=== PATIENT | male | born 1950 | race Caucasian/White ===

== ENCOUNTER → 2017-03-16 | Outpatient (CLI) | payer BC | LOC: RAH 07:38 | PROVIDERS: ATTEND Family Medicine | DX: N20.0 Calculus of kidney (principal); N28.1 Cyst of kidney, acquired | CPT/HCPCS: 76700 ==

== ENCOUNTER → 2017-03-22 | Outpatient (CLI) | payer BC ==
[2017-03-22 11:33] LABS: ALBUMIN 3.3 g/dL (3.5-5.0); BILIRUBIN,TOTAL 0.5 mg/dL (0.2-1.0); CREATININE 1.3 mg/dL (0.5-1.5); POTASSIUM 3.9 mmol/L (3.5-5.1); TOTAL PROTEIN, SERUM 6.7 g/dL (6.0-8.3)
[2017-03-23 08:20] LABS: HEPATITIS A ANTIBODY IGM Negative (Negative); HEPATITIS B CORE IGM Negative (Negative); HEPATITIS Bs ANTIGEN SCREEN P Negative (Negative)
== END | disposition home or self-care (01) ==
LOC: LAB 10:51
PROVIDERS: ATTEND Family Medicine
DX: I12.9 Hypertensive chronic kidney disease with stage 1 through stage 4 chronic kidney disease, or unspecified chronic kidney disease (principal); E11.69 Type 2 diabetes mellitus with other specified complication; N18.9 Chronic kidney disease, unspecified; E78.4 Other hyperlipidemia; R74.9 Abnormal serum enzyme level, unspecified
CPT/HCPCS: 36415; 80053; 80074

== ENCOUNTER → 2017-11-04 | Outpatient (CLI) | payer BC | END | disposition home or self-care (01) | LOC: RAH 08:26 | PROVIDERS: ATTEND Family Medicine | DX: I08.1 Rheumatic disorders of both mitral and tricuspid valves (principal); I12.9 Hypertensive chronic kidney disease with stage 1 through stage 4 chronic kidney disease, or unspecified chronic kidney disease; E11.22 Type 2 diabetes mellitus with diabetic chronic kidney disease; E11.52 Type 2 diabetes mellitus with diabetic peripheral angiopathy with gangrene; N18.5 Chronic kidney disease, stage 5 | CPT/HCPCS: 93306 ==

== ENCOUNTER → 2018-08-17 | Outpatient (CLI) | payer BC ==
[~2018-08-17] MED LIST: AMLO10TA7 PO; CARV25TA PO; HYAL1CAP PO; INSU100V3 SQ; KRIL500C PO; LOSA1TAB54 PO; METF-446 PO; NPH,100V SQ
--- NOTE | 2018-08-17 11:14 | NUR ---
FOLLOW UP MBSS COMPLETED. Pt WITH FUNCTIONAL SWALLOW AT THIS TIME. NO RISKS OF ASPIRATION. OK FOR P.O. BY MOUTH FOR ALL MEALS AND SNACKS. SKILLED SPEECH THERAPY IS NOT RECOMMENDED AT THIS TIME. Addendum: 08/17/18 at 1116 by ZEINA BURNS, SPT ST Amended: Links added.
== END | disposition home or self-care (01) ==
LOC: RAH 09:33
PROVIDERS: ATTEND Internal Medicine Gastroenterology
DX: R13.12 Dysphagia, oropharyngeal phase (principal); R63.3 Feeding difficulties; I10 Essential (primary) hypertension; E11.9 Type 2 diabetes mellitus without complications; Z86.73 Personal history of transient ischemic attack (TIA), and cerebral infarction without residual deficits
CPT/HCPCS: 74230; 92611

== ENCOUNTER → 2018-10-20 | Outpatient (CLI) | payer BC | END | disposition home or self-care (01) | LOC: SHCH 10:00 | PROVIDERS: ATTEND Internal Medicine Cardiovascular Disease | DX: I08.1 Rheumatic disorders of both mitral and tricuspid valves (principal); Z95.2 Presence of prosthetic heart valve | CPT/HCPCS: 93306 ==

== ENCOUNTER → 2019-04-04 | Outpatient (CLI) | payer BC | END | disposition home or self-care (01) | LOC: RAH 15:11 | PROVIDERS: ATTEND Family Medicine | DX: I65.23 Occlusion and stenosis of bilateral carotid arteries (principal) | CPT/HCPCS: 93880 ==

== ENCOUNTER 2020-03-17 15:57 | Inpatient (IN) | payer MEDICARE, BC ==
[~2020-03-17] VITALS: Ht 177.8 cm; Wt 79.9 kg
[2020-03-17] VITALS (19 sets, daily range): BP systolic 132–153; BP diastolic 63–83
[~2020-03-17 15:57] MED LIST changes: -AMLO10TA7 PO; +ASPI-1197 PO; +ATOR40TA69 PO; -CARV25TA PO; +CLOP75TA14 PO; +DULA0.75 SQ; +FLUO20CA30 PO; +FOLI1TAB61 PO; -HYAL1CAP PO; -INSU100V3 SQ; +INSU300I SQ; +INSU3INS3 SQ; -KRIL500C PO; -LOSA1TAB54 PO; -METF-446 PO; +METO25TA6 PO; +MIRA25TA PO; -NPH,100V SQ; +PANT40TA55 PO; +TELM1TAB31 PO
[2020-03-17 16:52] LABS: BASOPHILS % (AUTO) 1.3 % (0.0-5.0); EOSINOPHILS % (AUTO) 4.3 % (0.0-8.0); HEMATOCRIT 25.1 % (42-54); LYMPHOCYTES % (AUTO) 10.5 % (21.0-51.0); MEAN CORPUSCULAR HEMOGLOBIN 24.5 pg (27.0-33.0); MEAN CORPUSCULAR HGB CONC 29.9 g/dL (32.0-36.0); MONOCYTES % (AUTO) 6.8 % (3.0-13.0); NEUTROPHILS % (AUTO) 76.8 % (40.0-77.0); PLATELET COUNT (AUTO) 251 K/uL (130-400); RED BLOOD CELL COUNT(AUTO) 3.06 MIL/uL (4.50-6.20); RED CELL DISTRIBUTION WIDTH 16.4 % (11.0-15.5); WHITE BLOOD COUNT (AUTO) 12.6 K/uL (4.8-10.8)
[2020-03-17 17:00] LABS: CREATININE 1.6 mg/dL (0.5-1.5); POTASSIUM 4.1 mmol/L (3.5-5.1)
[2020-03-17] MEDS ORDERED: MORPHINE 4 MG SYG IV PRN (17:45)
[2020-03-17] MEDS ORDERED: LACTULOSE 20 GM/30 ML UDCUP PO PRN (17:45)
[2020-03-17] MEDS ORDERED: DiphenhydrAMINE HCL 50 MG/ML VIAL IV PRN (17:45)
[2020-03-17] MEDS ORDERED: GUAIFENESIN-DM 200/20 MG 10 ML PO PRN (17:45)
[2020-03-17] MEDS ORDERED: ACETAMINOPHEN 325 MG TAB PO PRN ×2 (17:45)
[2020-03-17] MEDS ORDERED: MAG/ALUM/SIMETH 30 ML UDCUP PO PRN (17:45)
[2020-03-17] MEDS ORDERED: ONDANSETRON 4MG INJ IV PRN (17:45)
[2020-03-17] MEDS ORDERED: VANCOMYCIN 1G/250ML KIT 250 ML IV SCH (17:45)
[2020-03-17] MEDS ORDERED: BUPIVACAINE/PF 0.5% 30ML VIAL ONE (17:52)
[2020-03-17] MEDS ORDERED: MIDAZOLAM HCL 1 MG/ML 2ML VIAL ONE (17:52)
[2020-03-17] MEDS ORDERED: LIDOCAINE HCL 1% 20 ML VIAL ONE (17:52)
[2020-03-17] MEDS ORDERED: LIDOCAINE PF 100MG/5ML (2%) SYRINGE 5ML ONE (17:52)
[2020-03-17] MEDS ORDERED: FENTANYL CITRATE PF 50 MCG/1 ML 2ML VIAL ONE (17:52)
[2020-03-17] MEDS ORDERED: PROPOFOL 10 MG/ML 20ML VIAL IV ONE (17:52)
[2020-03-17] MEDS ORDERED: ONDANSETRON 4MG INJ ONE (17:52)
[2020-03-17] MEDS ORDERED: MEPERIDINE-PF 25 MG/ML SYG ONE (17:53)
[2020-03-17] MEDS ORDERED: EPHEDRINE SULFATE 50 MG/ML AMPULE ONE (18:15)
[2020-03-17] MEDS ORDERED: VANCOMYCIN PROTOCOL PER PHARMACY IV SCH (18:45)
[2020-03-17] MEDS ORDERED: ZOSYN 3.375GM+NS 50ML 50 ML IV ONE (19:44)
[2020-03-17] MEDS: ZOSYN 3.375GM+NS 50ML 50 ML IV SCH (20:29)
[2020-03-17] MEDS ORDERED: DEXTROSE 50%-WATER 50 ML DISP.SYRIN IV PRN (21:30)
[2020-03-17] MEDS ORDERED: PHARMACY COMMUNICATION MISC SCH (21:30)
[2020-03-17] MEDS ORDERED: GLUCAGON 1MG KIT 1 MG ML IM PRN (21:30)
[2020-03-17] MEDS: 0.9%NACL 1000ML 1,000 ML IV SCH (22:29)
[2020-03-17 23:00] LABS: HEMATOCRIT 21.1 % (42-54)
[2020-03-18] VITALS (7 sets, daily range): BP systolic 126–160; BP diastolic 59–81
[2020-03-18] MEDS: ZOSYN 3.375GM+NS 50ML 50 ML IV SCH ×3 (05:25→21:12)
[2020-03-18] MEDS: INSULIN HUMULIN R 100 UNIT/ML 3ML SQ SCH ×4 (05:57→21:00)
[2020-03-18 06:07] LABS: HEMATOCRIT 26.3 % (42-54); MEAN CORPUSCULAR HEMOGLOBIN 25.6 pg (27.0-33.0); MEAN CORPUSCULAR HGB CONC 30.8 g/dL (32.0-36.0); PLATELET COUNT (AUTO) 219 K/uL (130-400); RED BLOOD CELL COUNT(AUTO) 3.17 MIL/uL (4.50-6.20); RED CELL DISTRIBUTION WIDTH 16.1 % (11.0-15.5); WHITE BLOOD COUNT (AUTO) 10.7 K/uL (4.8-10.8)
[2020-03-18] MEDS ORDERED: COMPOUND IV REFRIGERATED 1 EACH IVSOLN MISC PRN (06:15)
[2020-03-18 06:32] LABS: INR 1.19 (0.85-1.15); PROTHROMBIN TIME 12.8 SEC (9.6-11.6)
[2020-03-18 06:33] LABS: PARTIAL THROMBOPLASTIN TIME 29.7 SEC (26.3-35.5)
[2020-03-18 07:04] LABS: LYMPHOCYTES % (MANUAL) 14 % (22-44); MAN.DIFF COMMENT-IMPRESSION MANUAL DIFFERENTIAL; MONOCYTES % (MANUAL) 3 % (2-9); SEGMENTED NEUTROPHILS % 83 % (40-70)
[2020-03-18 07:05] LABS: PLATELET MORPHOLOGY COMMENT ADEQUATE
[2020-03-18 07:25] LABS: CREATININE 1.5 mg/dL (0.5-1.5); MAGNESIUM 1.5 mg/dL (1.80-2.40); POTASSIUM 3.9 mmol/L (3.5-5.1)
[2020-03-18] MEDS: LOSARTAN/HYDROCHLOROTHIAZIDE 50-12.5MG TABLET PO SCH (10:45)
[2020-03-18] MEDS: METOPROLOL TARTRATE 25 MG TAB PO SCH ×2 (10:46→21:12)
[2020-03-18] MEDS: Vitamin B Complex/Vit C/Folic Acid PO SCH (10:46)
[2020-03-18] MEDS: FLUOXETINE HCL 20 MG CAPSULE PO SCH (10:46)
[2020-03-18] MEDS: PANTOPRAZOLE 40 MG TAB DR PO SCH (10:46)
[2020-03-18] MEDS: VANCOMYCIN 1G 1.25 GM in 0.9% NACL 250ML 250 ML IV SCH (10:53)
[2020-03-18] MEDS: 0.9%NACL 1000ML 1,000 ML IV SCH ×2 (11:05→22:22)
[2020-03-18] MEDS: ATORVASTATIN 40 MG TABLET PO SCH (21:12)
[2020-03-19] VITALS (7 sets, daily range): BP systolic 109–173; BP diastolic 72–95
[2020-03-19] MEDS: ZOSYN 3.375GM+NS 50ML 50 ML IV SCH ×3 (04:30→20:47)
[2020-03-19 06:12] LABS: HEMATOCRIT 29.1 % (42-54); MEAN CORPUSCULAR HEMOGLOBIN 24.6 pg (27.0-33.0); MEAN CORPUSCULAR HGB CONC 29.6 g/dL (32.0-36.0); MEAN CORPUSCULAR VOLUME 83.4 fL (79-99); RED BLOOD CELL COUNT(AUTO) 3.49 MIL/uL (4.50-6.20); RED CELL DISTRIBUTION WIDTH 16.4 % (11.0-15.5); WHITE BLOOD COUNT (AUTO) 11.7 K/uL (4.8-10.8)
[2020-03-19 06:27] LABS: CREATININE 1.5 mg/dL (0.5-1.5); MAGNESIUM 1.5 mg/dL (1.80-2.40); POTASSIUM 4.3 mmol/L (3.5-5.1)
[2020-03-19] MEDS: INSULIN HUMULIN R 100 UNIT/ML 3ML SQ SCH ×4 (06:46→20:54)
[2020-03-19] MEDS: VANCOMYCIN 1G 1.25 GM in 0.9% NACL 250ML 250 ML IV SCH (09:01)
[2020-03-19] MEDS: Vitamin B Complex/Vit C/Folic Acid PO SCH (09:05)
[2020-03-19] MEDS: FLUOXETINE HCL 20 MG CAPSULE PO SCH (09:05)
[2020-03-19] MEDS: LOSARTAN/HYDROCHLOROTHIAZIDE 50-12.5MG TABLET PO SCH (09:05)
[2020-03-19] MEDS: METOPROLOL TARTRATE 25 MG TAB PO SCH ×2 (09:06→20:48)
[2020-03-19] MEDS: PANTOPRAZOLE 40 MG TAB DR PO SCH (09:06)
[2020-03-19] MEDS: MAGNESIUM 2GM PREMIX 50ML 50 ML IV SCH ×2 (12:10→17:11)
[2020-03-19] MEDS: ATORVASTATIN 40 MG TABLET PO SCH (20:48)
[2020-03-20] MEDS: 0.9%NACL 1000ML 1,000 ML IV SCH (01:57)
[2020-03-20 03:47] VITALS: BP 174/94
[2020-03-20] MEDS: ZOSYN 3.375GM+NS 50ML 50 ML IV SCH ×3 (04:24→21:51)
[2020-03-20 05:19] LABS: CREATININE 1.8 mg/dL (0.5-1.5); MAGNESIUM 1.8 mg/dL (1.80-2.40); POTASSIUM 3.9 mmol/L (3.5-5.1)
[2020-03-20] MEDS: INSULIN HUMULIN R 100 UNIT/ML 3ML SQ SCH ×4 (06:16→21:50)
[2020-03-20 07:18] VITALS: BP 174/109
[2020-03-20] MEDS: PANTOPRAZOLE 40 MG TAB DR PO SCH (08:03)
[2020-03-20] MEDS: LOSARTAN/HYDROCHLOROTHIAZIDE 50-12.5MG TABLET PO SCH (08:03)
[2020-03-20] MEDS: FLUOXETINE HCL 20 MG CAPSULE PO SCH (08:03)
[2020-03-20] MEDS: Vitamin B Complex/Vit C/Folic Acid PO SCH (08:03)
[2020-03-20] MEDS: METOPROLOL TARTRATE 25 MG TAB PO SCH ×2 (08:03→21:46)
[2020-03-20] MEDS: VANCOMYCIN 1G 1.25 GM in 0.9% NACL 250ML 250 ML IV SCH (08:25)
[2020-03-20 10:41] VITALS: BP 128/72
[2020-03-20] MEDS: MAGNESIUM 2GM PREMIX 50ML 50 ML IV SCH (11:22)
[2020-03-20] MEDS ORDERED: IPRATROPIUM/ALBUTEROL SULFATE 3 ML SOLUTION IH PRN (13:45)
[2020-03-20] MEDS: FUROSEMIDE 20MG VIAL IV SCH (14:44)
[2020-03-20 16:09] VITALS: BP 196/82
[2020-03-20] MEDS ORDERED: LABETALOL 20MG VIAL IV SCH (18:45)
[2020-03-20 20:00] VITALS: BP 169/97
[2020-03-20] MEDS: ATORVASTATIN 40 MG TABLET PO SCH (21:46)
[2020-03-20] MEDS ORDERED: LABETALOL 20MG SYG IV PRN (22:45)
[2020-03-21] VITALS (7 sets, daily range): BP systolic 91–189; BP diastolic 54–113
[2020-03-21] MEDS: FUROSEMIDE 20MG VIAL IV SCH ×2 (02:31→14:05)
[2020-03-21] MEDS: ZOSYN 3.375GM+NS 50ML 50 ML IV SCH ×3 (05:28→20:03)
[2020-03-21] MEDS: INSULIN HUMULIN R 100 UNIT/ML 3ML SQ SCH ×4 (06:33→20:44)
[2020-03-21] MEDS: Vitamin B Complex/Vit C/Folic Acid PO SCH (09:00)
[2020-03-21] MEDS: PANTOPRAZOLE 40 MG TAB DR PO SCH (09:00)
[2020-03-21] MEDS: METOPROLOL TARTRATE 25 MG TAB PO SCH ×2 (09:00→20:03)
[2020-03-21] MEDS: MAGNESIUM 2GM PREMIX 50ML 50 ML IV SCH (09:00)
[2020-03-21] MEDS: LOSARTAN/HYDROCHLOROTHIAZIDE 50-12.5MG TABLET PO SCH (09:00)
[2020-03-21] MEDS: VANCOMYCIN 1G 1.25 GM in 0.9% NACL 250ML 250 ML IV SCH (09:00)
[2020-03-21] MEDS: ASPIRIN 81MG CHEW TAB PO SCH (09:01)
[2020-03-21] MEDS: FLUOXETINE HCL 20 MG CAPSULE PO SCH (09:01)
[2020-03-21] MEDS: ATORVASTATIN 40 MG TABLET PO SCH (20:03)
[2020-03-21] MEDS: CLONIDINE HCL 0.1 MG TABLET PO PRN (23:34)
[2020-03-22] VITALS (25 sets, daily range): BP systolic 92–153; BP diastolic 50–82
[2020-03-22] MEDS: FUROSEMIDE 20MG VIAL IV SCH (01:46)
[2020-03-22] MEDS: ZOSYN 3.375GM+NS 50ML 50 ML IV SCH ×4 (03:56→22:01)
[2020-03-22 05:30] LABS: CREATININE 1.8 mg/dL (0.5-1.5); MAGNESIUM 1.6 mg/dL (1.80-2.40); POTASSIUM 3.2 mmol/L (3.5-5.1)
[2020-03-22 05:38] LABS: EOSINOPHILS % (AUTO) 7.1 % (0.0-8.0); HEMATOCRIT 29.2 % (42-54); LYMPHOCYTES % (AUTO) 16.8 % (21.0-51.0); MEAN CORPUSCULAR HEMOGLOBIN 24.8 pg (27.0-33.0); MEAN CORPUSCULAR HGB CONC 30.8 g/dL (32.0-36.0); MEAN CORPUSCULAR VOLUME 80.4 fL (79-99); MONOCYTES % (AUTO) 8.5 % (3.0-13.0); NEUTROPHILS % (AUTO) 65.1 % (40.0-77.0); PLATELET COUNT (AUTO) 315 K/uL (130-400); RED BLOOD CELL COUNT(AUTO) 3.63 MIL/uL (4.50-6.20); RED CELL DISTRIBUTION WIDTH 16.6 % (11.0-15.5); WHITE BLOOD COUNT (AUTO) 9.6 K/uL (4.8-10.8)
[2020-03-22] MEDS: INSULIN HUMULIN R 100 UNIT/ML 3ML SQ SCH ×4 (05:53→22:05)
[2020-03-22] MEDS: MAGNESIUM 2GM PREMIX 50ML 50 ML IV SCH (06:08)
[2020-03-22] MEDS ORDERED: MIDAZOLAM HCL 1 MG/ML 2ML VIAL ONE (08:35)
[2020-03-22] MEDS ORDERED: ONDANSETRON 4MG INJ ONE (08:36)
[2020-03-22] MEDS: PANTOPRAZOLE 40 MG TAB DR PO SCH (09:00)
[2020-03-22] MEDS: METOPROLOL TARTRATE 25 MG TAB PO SCH ×2 (09:00→22:01)
[2020-03-22] MEDS: LOSARTAN/HYDROCHLOROTHIAZIDE 50-12.5MG TABLET PO SCH (09:00)
[2020-03-22] MEDS: ASPIRIN 81MG CHEW TAB PO SCH (09:00)
[2020-03-22] MEDS: FLUOXETINE HCL 20 MG CAPSULE PO SCH (09:00)
[2020-03-22] MEDS: Vitamin B Complex/Vit C/Folic Acid PO SCH (09:00)
[2020-03-22] MEDS ORDERED: MORPHINE PF 100MG/10ML AMP IV ONE (09:42)
[2020-03-22] MEDS ORDERED: ALBUMIN (HUMAN) 5% 500 ML IV ONE (09:43)
[2020-03-22] MEDS ORDERED: FENTANYL CITRATE PF 50 MCG/1 ML 2ML VIAL ONE (09:47)
[2020-03-22 09:50] LABS: INR 1.27 (0.85-1.15); PROTHROMBIN TIME 13.5 SEC (9.6-11.6)
[2020-03-22] MEDS ORDERED: EPHEDRINE SULFATE 50 MG/ML AMPULE ONE (10:18)
[2020-03-22] MEDS: ATORVASTATIN 40 MG TABLET PO SCH (22:00)
[2020-03-23] VITALS (10 sets, daily range): BP systolic 142–160; BP diastolic 63–85
[2020-03-23] MEDS: ACETAMINOPHEN WITH CODEINE 1 TAB TAB PO PRN ×3 (02:24→22:03)
[2020-03-23] MEDS: ZOSYN 3.375GM+NS 50ML 50 ML IV SCH ×3 (06:24→20:41)
[2020-03-23 06:41] LABS: CREATININE 1.4 mg/dL (0.5-1.5); POTASSIUM 4.1 mmol/L (3.5-5.1)
[2020-03-23] MEDS: INSULIN HUMULIN R 100 UNIT/ML 3ML SQ SCH ×4 (06:41→21:00)
[2020-03-23 06:51] LABS: HEMATOCRIT 31.4 % (42-54); MEAN CORPUSCULAR HEMOGLOBIN 25.9 pg (27.0-33.0); MEAN CORPUSCULAR HGB CONC 31.2 g/dL (32.0-36.0); MEAN CORPUSCULAR VOLUME 83.1 fL (79-99); RED BLOOD CELL COUNT(AUTO) 3.78 MIL/uL (4.50-6.20); RED CELL DISTRIBUTION WIDTH 15.8 % (11.0-15.5); WHITE BLOOD COUNT (AUTO) 12.6 K/uL (4.8-10.8)
[2020-03-23] MEDS: FLUOXETINE HCL 20 MG CAPSULE PO SCH (09:37)
[2020-03-23] MEDS: LOSARTAN/HYDROCHLOROTHIAZIDE 50-12.5MG TABLET PO SCH (09:37)
[2020-03-23] MEDS: METOPROLOL TARTRATE 25 MG TAB PO SCH ×2 (09:37→20:40)
[2020-03-23] MEDS: Vitamin B Complex/Vit C/Folic Acid PO SCH (09:38)
[2020-03-23] MEDS: PANTOPRAZOLE 40 MG TAB DR PO SCH (09:38)
[2020-03-23] MEDS: VANCOMYCIN 1G/250ML KIT 250 ML IV SCH (10:59)
[2020-03-23] MEDS: ATORVASTATIN 40 MG TABLET PO SCH (20:40)
[2020-03-23] MEDS: HYDROMORPHONE 0.5 MG SYG (0.5MG/0.5ML) IVP PRN (20:46)
[2020-03-24] MEDS: HYDROMORPHONE 0.5 MG SYG (0.5MG/0.5ML) IVP PRN ×4 (01:01→20:52)
[2020-03-24 04:00] VITALS: BP 137/99
[2020-03-24] MEDS: ACETAMINOPHEN WITH CODEINE 1 TAB TAB PO PRN (04:54)
[2020-03-24] MEDS: ZOSYN 3.375GM+NS 50ML 50 ML IV SCH ×3 (04:54→20:47)
[2020-03-24 05:42] LABS: HEMATOCRIT 29.7 % (42-54); MEAN CORPUSCULAR HEMOGLOBIN 26.1 pg (27.0-33.0); MEAN CORPUSCULAR HGB CONC 31.3 g/dL (32.0-36.0); MEAN CORPUSCULAR VOLUME 83.2 fL (79-99); RED BLOOD CELL COUNT(AUTO) 3.57 MIL/uL (4.50-6.20); RED CELL DISTRIBUTION WIDTH 16.1 % (11.0-15.5); WHITE BLOOD COUNT (AUTO) 15.5 K/uL (4.8-10.8)
[2020-03-24 05:59] LABS: CREATININE 1.5 mg/dL (0.5-1.5); POTASSIUM 3.9 mmol/L (3.5-5.1)
[2020-03-24] MEDS: INSULIN HUMULIN R 100 UNIT/ML 3ML SQ SCH ×4 (06:22→21:00)
[2020-03-24 07:00] VITALS: BP 168/94
[2020-03-24] MEDS: METOPROLOL TARTRATE 25 MG TAB PO SCH ×2 (09:07→20:47)
[2020-03-24] MEDS: PANTOPRAZOLE 40 MG TAB DR PO SCH (09:08)
[2020-03-24] MEDS: FLUOXETINE HCL 20 MG CAPSULE PO SCH (09:08)
[2020-03-24] MEDS: LOSARTAN/HYDROCHLOROTHIAZIDE 50-12.5MG TABLET PO SCH (09:08)
[2020-03-24] MEDS: Vitamin B Complex/Vit C/Folic Acid PO SCH (09:08)
[2020-03-24] MEDS: CLOPIDOGREL 75MG TAB PO SCH (09:08)
[2020-03-24] MEDS: VANCOMYCIN 1G/250ML KIT 250 ML IV SCH (09:09)
[2020-03-24 11:30] VITALS: BP 151/79
[2020-03-24 16:00] VITALS: BP 161/84
[2020-03-24 20:00] VITALS: BP 155/95
[2020-03-24] MEDS: ATORVASTATIN 40 MG TABLET PO SCH (20:47)
[2020-03-24 23:21] VITALS: BP 156/87
[2020-03-25 04:20] VITALS: BP 156/94
[2020-03-25 05:44] LABS: HEMATOCRIT 28.8 % (42-54); MEAN CORPUSCULAR HEMOGLOBIN 25.9 pg (27.0-33.0); MEAN CORPUSCULAR HGB CONC 31.3 g/dL (32.0-36.0); RED BLOOD CELL COUNT(AUTO) 3.47 MIL/uL (4.50-6.20); RED CELL DISTRIBUTION WIDTH 16.3 % (11.0-15.5); WHITE BLOOD COUNT (AUTO) 15.6 K/uL (4.8-10.8)
[2020-03-25 05:57] LABS: CREATININE 1.6 mg/dL (0.5-1.5); POTASSIUM 3.6 mmol/L (3.5-5.1)
[2020-03-25] MEDS: ZOSYN 3.375GM+NS 50ML 50 ML IV SCH ×3 (06:18→20:44)
[2020-03-25] MEDS: INSULIN HUMULIN R 100 UNIT/ML 3ML SQ SCH ×4 (07:30→20:55)
[2020-03-25 07:48] VITALS: BP 169/96
[2020-03-25] MEDS: PANTOPRAZOLE 40 MG TAB DR PO SCH (09:58)
[2020-03-25] MEDS: FLUOXETINE HCL 20 MG CAPSULE PO SCH (09:58)
[2020-03-25] MEDS: LOSARTAN/HYDROCHLOROTHIAZIDE 50-12.5MG TABLET PO SCH (09:59)
[2020-03-25] MEDS: CLOPIDOGREL 75MG TAB PO SCH (09:59)
[2020-03-25] MEDS: METOPROLOL TARTRATE 25 MG TAB PO SCH ×2 (09:59→20:44)
[2020-03-25] MEDS: Vitamin B Complex/Vit C/Folic Acid PO SCH (09:59)
[2020-03-25] MEDS: VANCOMYCIN 1G/250ML KIT 250 ML IV SCH (10:18)
[2020-03-25 11:30] VITALS: BP 164/107
[2020-03-25 15:30] VITALS: BP 150/77
[2020-03-25 20:00] VITALS: BP 167/87
[2020-03-25] MEDS: ATORVASTATIN 40 MG TABLET PO SCH (20:44)
[2020-03-25] MEDS: ACETAMINOPHEN WITH CODEINE 1 TAB TAB PO PRN (20:49)
[2020-03-25 23:38] VITALS: BP 177/97
[2020-03-25] MEDS: CLONIDINE HCL 0.1 MG TABLET PO PRN (23:47)
[2020-03-26 04:00] VITALS: BP 166/87
[2020-03-26] MEDS: ZOSYN 3.375GM+NS 50ML 50 ML IV SCH ×3 (04:29→21:46)
[2020-03-26] MEDS: HYDROMORPHONE 0.5 MG SYG (0.5MG/0.5ML) IVP PRN (04:30)
[2020-03-26 05:14] LABS: HEMATOCRIT 27.9 % (42-54); MEAN CORPUSCULAR HEMOGLOBIN 25.8 pg (27.0-33.0); MEAN CORPUSCULAR HGB CONC 31.2 g/dL (32.0-36.0); MEAN CORPUSCULAR VOLUME 82.8 fL (79-99); RED BLOOD CELL COUNT(AUTO) 3.37 MIL/uL (4.50-6.20); RED CELL DISTRIBUTION WIDTH 16.6 % (11.0-15.5); WHITE BLOOD COUNT (AUTO) 14.1 K/uL (4.8-10.8)
[2020-03-26 05:28] LABS: CREATININE 1.6 mg/dL (0.5-1.5); MAGNESIUM 1.5 mg/dL (1.80-2.40)
[2020-03-26 05:33] LABS: POTASSIUM 2.9 mmol/L (3.5-5.1)
[2020-03-26] MEDS: MAGNESIUM 2GM PREMIX 50ML 50 ML IV SCH (05:57)
[2020-03-26] MEDS ORDERED: KCL 20 MEQ ERTAB PO PRN (06:00)
[2020-03-26] MEDS ORDERED: MAGNESIUM 2GM PREMIX 50ML 50 ML IV PRN (06:00)
[2020-03-26] MEDS: INSULIN HUMULIN R 100 UNIT/ML 3ML SQ SCH ×4 (06:00→22:00)
[2020-03-26] MEDS ORDERED: LIDOCAINE HCL-MPF 1% 2ML VIAL IV PRN (06:00)
[2020-03-26] MEDS: POTASSIUM CHLORIDE 10% ELIXIR 20 MEQ/15 ML UDCUP PO PRN ×2 (06:41→12:32)
[2020-03-26] MEDS: POTASSIUM CHLORIDE 10MEQ/100ML 100 ML IV PRN (06:42)
[2020-03-26 09:15] VITALS: BP 142/76
[2020-03-26] MEDS: Vitamin B Complex/Vit C/Folic Acid PO SCH (10:04)
[2020-03-26] MEDS: PANTOPRAZOLE 40 MG TAB DR PO SCH (10:04)
[2020-03-26] MEDS: FLUOXETINE HCL 20 MG CAPSULE PO SCH (10:04)
[2020-03-26] MEDS: CLOPIDOGREL 75MG TAB PO SCH (10:05)
[2020-03-26] MEDS: LOSARTAN/HYDROCHLOROTHIAZIDE 50-12.5MG TABLET PO SCH (10:05)
[2020-03-26] MEDS: METOPROLOL TARTRATE 25 MG TAB PO SCH ×2 (10:05→21:47)
[2020-03-26] MEDS: VANCOMYCIN 1G/250ML KIT 250 ML IV SCH (10:20)
[2020-03-26 12:20] VITALS: BP 165/86
[2020-03-26 15:50] LABS: INR 1.21 (0.85-1.15)
[2020-03-26 15:52] LABS: PARTIAL THROMBOPLASTIN TIME 31.7 SEC (26.3-35.5)
[2020-03-26 16:17] VITALS: BP 170/98
[2020-03-26 20:10] VITALS: BP 151/97
[2020-03-26] MEDS: ATORVASTATIN 40 MG TABLET PO SCH (21:46)
[2020-03-27 00:06] VITALS: BP 155/96
[2020-03-27 04:11] VITALS: BP 175/90
[2020-03-27 05:10] LABS: HEMATOCRIT 30.4 % (42-54); MEAN CORPUSCULAR HEMOGLOBIN 25.8 pg (27.0-33.0); MEAN CORPUSCULAR HGB CONC 31.3 g/dL (32.0-36.0); MEAN CORPUSCULAR VOLUME 82.6 fL (79-99); RED BLOOD CELL COUNT(AUTO) 3.68 MIL/uL (4.50-6.20); RED CELL DISTRIBUTION WIDTH 16.5 % (11.0-15.5); WHITE BLOOD COUNT (AUTO) 13.1 K/uL (4.8-10.8)
[2020-03-27 05:27] LABS: CREATININE 1.5 mg/dL (0.5-1.5); MAGNESIUM 1.7 mg/dL (1.80-2.40); POTASSIUM 3.2 mmol/L (3.5-5.1)
[2020-03-27] MEDS: ZOSYN 3.375GM+NS 50ML 50 ML IV SCH ×2 (05:31→13:48)
[2020-03-27] MEDS: INSULIN HUMULIN R 100 UNIT/ML 3ML SQ SCH ×2 (05:48→13:46)
[2020-03-27] MEDS: MAGNESIUM 2GM PREMIX 50ML 50 ML IV SCH (06:45)
[2020-03-27 08:43] VITALS: BP 157/78
[2020-03-27] MEDS: Vitamin B Complex/Vit C/Folic Acid PO SCH (09:27)
[2020-03-27] MEDS: LOSARTAN/HYDROCHLOROTHIAZIDE 50-12.5MG TABLET PO SCH (09:27)
[2020-03-27] MEDS: FLUOXETINE HCL 20 MG CAPSULE PO SCH (09:27)
[2020-03-27] MEDS: PANTOPRAZOLE 40 MG TAB DR PO SCH (09:27)
[2020-03-27] MEDS: VANCOMYCIN 1G/250ML KIT 250 ML IV SCH (09:27)
[2020-03-27] MEDS: METOPROLOL TARTRATE 25 MG TAB PO SCH (09:28)
[2020-03-27] MEDS: CLOPIDOGREL 75MG TAB PO SCH (09:28)
[2020-03-27] MEDS: POTASSIUM CHLORIDE 10MEQ/100ML 100 ML IV PRN (09:29)
[2020-03-27 13:44] VITALS: BP 150/69
== END 2020-03-27 15:30 | DRG 463 ==
LOC: EDH 15:57 → EDHIP 17:43 → OBSVTOIN 17:43 → 3DH 19:36 → 3BH 03-24 20:02
PROVIDERS: ADMIT Internal Medicine Critical Care Medicine; ATTEND Internal Medicine Critical Care Medicine
PROC: 0JBR0ZZ Excision of Left Foot Subcutaneous Tissue and Fascia, Open Approach (ICD-10-PCS; principal; 2020-03-17 17:55)
PROC: 30233N1 Transfusion of Nonautologous Red Blood Cells into Peripheral Vein, Percutaneous Approach (ICD-10-PCS; 2020-03-18)
PROC: 02HV33Z Insertion of Infusion Device into Superior Vena Cava, Percutaneous Approach (ICD-10-PCS; 2020-03-18)
PROC: 0Y6J0Z1 Detachment at Left Lower Leg, High, Open Approach (ICD-10-PCS; 2020-03-22 09:20)
DX: T87.44 Infection of amputation stump, left lower extremity (principal); G92 Toxic encephalopathy; E11.52 Type 2 diabetes mellitus with diabetic peripheral angiopathy with gangrene; L03.90 Cellulitis, unspecified; L97.319 Non-pressure chronic ulcer of right ankle with unspecified severity; M86.8X7 Other osteomyelitis, ankle and foot; I96 Gangrene, not elsewhere classified; E11.621 Type 2 diabetes mellitus with foot ulcer; E11.69 Type 2 diabetes mellitus with other specified complication; E66.9 Obesity, unspecified; F03.90 Unspecified dementia, unspecified severity, without behavioral disturbance, psychotic disturbance, mood disturbance, and anxiety; I25.10 Atherosclerotic heart disease of native coronary artery without angina pectoris; L97.519 Non-pressure chronic ulcer of other part of right foot with unspecified severity; L97.529 Non-pressure chronic ulcer of other part of left foot with unspecified severity; Y83.5 Amputation of limb(s) as the cause of abnormal reaction of the patient, or of later complication, without mention of misadventure at the time of the procedure; T87.81 Dehiscence of amputation stump; Y92.89 Other specified places as the place of occurrence of the external cause; Z68.25 Body mass index [BMI] 25.0-25.9, adult; Z74.01 Bed confinement status; Z79.02 Long term (current) use of antithrombotics/antiplatelets; Z79.2 Long term (current) use of antibiotics; I10 Essential (primary) hypertension; Z79.4 Long term (current) use of insulin; Z79.82 Long term (current) use of aspirin; Z79.899 Other long term (current) drug therapy; Z86.73 Personal history of transient ischemic attack (TIA), and cerebral infarction without residual deficits; Z91.19 Patient's noncompliance with other medical treatment and regimen; Z95.1 Presence of aortocoronary bypass graft; Z95.2 Presence of prosthetic heart valve; Z83.3 Family history of diabetes mellitus; Z82.49 Family history of ischemic heart disease and other diseases of the circulatory system
CPT/HCPCS: 36415; 36430; 71045; 72170; 73562; 73630; 73718; 80048; 80202; 82948; 83735; 85014; 85018; 85025; 85027; 85610; 85651; 85730; 86140; 86850; 86900; 86901; 86923; 87040; 87070; 87076; 87205; 92610; 93925; 94664; 97039; A6250; C1894; G0378; J1170; J1200; J1815; J1940; J2001; J2175; J2250; J2274; J2405; J2543; J2704; J3010; J3370; J3475; J3490; J7030; J7050; P9016; P9045

== ENCOUNTER → 2020-08-12 | Outpatient (CLI) | payer MEDICARE | END | disposition home or self-care (01) | LOC: RAH 09:08 | PROVIDERS: ATTEND Surgery | DX: I73.9 Peripheral vascular disease, unspecified (principal); T81.89XA Other complications of procedures, not elsewhere classified, initial encounter; X58.XXXA Exposure to other specified factors, initial encounter; Y93.89 Activity, other specified; Y92.89 Other specified places as the place of occurrence of the external cause; Y99.8 Other external cause status; Z89.512 Acquired absence of left leg below knee | CPT/HCPCS: 73721 ==